=== PATIENT | female | born 1975 | race Caucasian/White ===

== ENCOUNTER 2016-12-03 01:30 | Emergency (ER) | payer OTHER ==
[~2016-12-03] VITALS: Ht 170.2 cm; Wt 49.9 kg
[2016-12-03 01:35] VITALS: TEMP 37.4; Ht 170.2 cm; Wt 49.9 kg
[2016-12-03] MEDS ORDERED: METHYLPREDNISOLONE 125 MG VIAL IV STA (01:47)
[2016-12-03] MEDS ORDERED: ALBUT/IPRATROP 3MG/0.5MG NEB 3 ML VIAL INH STA (01:47)
[2016-12-03] MEDS ORDERED: SODIUM CHLORIDE 0.9% 1000ML 1,000 ML IV STA (01:47)
[2016-12-03 02:19] LABS: BASO % 0.2 %; BASO ABS # 0.01 K/uL (0-0.2); COMPLETE YES; EOS % 0.7 %; HEMATOCRIT 40.6 % (37-47); IG% 0.2 %; LYMPH % 28.4 %; LYMPH ABS # 1.63 K/uL (1.2-3.4); MEAN CELL VOLUME 85.5 fL (80-100); MEAN CORPUSCULAR HEMOGLOBIN 31.4 pg (25-34); MEAN CORPUSCULAR HGB CONC 36.7 g/dl (32-36); MEAN PLATELET VOLUME 10.3 fL (7.4-10.4); MONO % 8.5 %; PLATELET COUNT 207 K/uL (130-400); RED BLOOD COUNT 4.75 M/uL (4.2-5.4); WHITE BLOOD COUNT 5.74 K/uL (4.8-10.8)
[2016-12-03 02:40] LABS: BLOOD UREA NITROGEN 8 mg/dl (7-18); BUN/CREATININE RATIO 9.3 (10-20); CALCIUM 8.5 mg/dl (8.5-10.1); CARBON DIOXIDE 23 mmol/L (21-32); CHLORIDE 108 mmol/L (98-107); CREATININE 0.87 mg/dl (0.60-1.20); GLUCOSE 94 mg/dl (70-99); POTASSIUM 3.9 mmol/L (3.5-5.1); SODIUM 141 mmol/L (136-145)
[2016-12-03 02:41] LABS: PREG INTERNAL NEGATIVE QC NEG CLEAR BACKGROUND; PREG INTERNAL POSITIVE QC POS CONTROL LINE
--- NOTE | 2016-12-03 03:02 | EMERGENCY ROOM VISIT NOTE ---
History First contact with patient: 01:43 Chief Complaint: FLU LIKE SX Stated Complaint: BAD COUGH,HURTS CHEST,FLU LIKE SYMPT LAST 2 DYS History of Present Illness The patient is a 40 year old female who presents to the Emergency Room with complaints of cough, congestion, mild, arthralgias, chest pain with coughing, fever and chills for the past few days. She was at urgent care was placed on a [employer]. Patient denies constant chest pain, abdominal pain, vomiting, diarrhea, neck stiffness, sore throat, earache. She is tolerate by mouth fluids and food. Her kids have been sick. Review of Systems See HPI for pertinent positives & negatives. A total of 10 systems reviewed and were otherwise negative. Past Medical/Surgical History Medical Problems: (1) Orthopedic surgery Family History Cancer Hypertension Kidney disease Kidney stones Social History Smoking Status: Never Smoker Alcohol Use: none Marital Status: Housing Status: lives with family Occupation Status: unemployed Current/Historical Medications Scheduled Prednisone (Prednisone), 50 MG PO DAILY Allergies Coded Allergies: No Known Allergies (Verified , 12/03/16) Physical Exam Vital Signs Date Time Temp Pulse Resp B/P Pulse Ox O2 Delivery O2 Flow Rate FiO2 12/03/16 01:35 37.4 99 19 104/65 97 Room Air Physical Exam VITALS: Vitals are noted on the nurse's note and reviewed by myself. Vital signs stable. GENERAL: Pleasant female, in no acute distress, nondiaphoretic, well-developed well-nourished. SKIN: The skin was without rashes, erythema, edema, or bruising. There is no tenting of the skin. Capillary reflex less than 2 seconds. HEAD: Normocephalic atraumatic. EARS: External auditory canals clear, tympanic membranes pearly culp without erythema or effusion bilaterally. EYES: Pupils equal round and reactive to light and accommodation. Conjunctivae without injection, sclerae without icterus. Extraocular movements intact. NOSE: Patent, turbinates without inflammation or discharge. No sinus tenderness. MOUTH: Mucous membranes moist. Pharynx without erythema or exudate. Uvula midline. Airway patent. Tongue does not deviate. NECK: Supple without nuchal rigidity. No lymphadenopathy. No thyromegaly. Cervical spine is nontender. No JVD. HEART: Regular rate and rhythm without murmurs gallops or rubs. LUNGS: Mild diffuse end expiratory wheezes, without rales or rhonchi. No dullness to percussion. No retractions or accessory muscle use. ABDOMEN: Positive bowel sounds x 4. Normal tympanic percussion. Soft, nontender, without masses or organomegaly. Banks sign negative. No guarding or rebound tenderness. MUSCULOSKELETAL: No muscle atrophy, erythema, or edema noted. NEURO: Patient was alert and oriented to person place and time. Normal sensation to light and sharp touch. No focal neurological deficits. Medical Decision & Procedures Laboratory Results 12/03/16 02:00 Red Blood Count 4.75, Mean Corpuscular Volume 85.5, Mean Corpuscular Hemoglobin 31.4, Mean Corpuscular Hemoglobin Concent 36.7, Mean Platelet Volume 10.3, Neutrophils (%) (Auto) 62.0, Lymphocytes (%) (Auto) 28.4, Monocytes (%) (Auto) 8.5, Eosinophils (%) (Auto) 0.7, Basophils (%) (Auto) 0.2, Neutrophils # (Auto) 3.56, Lymphocytes # (Auto) 1.63, Monocytes # (Auto) 0.49, Eosinophils # (Auto) 0.04, Basophils # (Auto) 0.01 12/03/16 02:00 Test 12/03/16 01:50 12/03/16 02:00 Influenza Type A Antigen Neg for Influ A (NEG) Influenza Type B Antigen Neg for Influ B (NEG) White Blood Count 5.74 K/uL (4.8-10.8) Red Blood Count 4.75 M/uL (4.2-5.4) Hemoglobin 14.9 g/dL (12.0-16.0) Hematocrit 40.6 % (37-47) Mean Corpuscular Volume 85.5 fL (80-100) Mean Corpuscular Hemoglobin 31.4 pg (25-34) Mean Corpuscular Hemoglobin Concent 36.7 g/dl (32-36) Platelet Count 207 K/uL (130-400) Mean Platelet Volume 10.3 fL (7.4-10.4) Neutrophils (%) (Auto) 62.0 % Lymphocytes (%) (Auto) 28.4 % Monocytes (%) (Auto) 8.5 % Eosinophils (%) (Auto) 0.7 % Basophils (%) (Auto) 0.2 % Neutrophils # (Auto) 3.56 K/uL (1.4-6.5) Lymphocytes # (Auto) 1.63 K/uL (1.2-3.4) Monocytes # (Auto) 0.49 K/uL (0.11-0.59) Eosinophils # (Auto) 0.04 K/uL (0-0.5) Basophils # (Auto) 0.01 K/uL (0-0.2) RDW Standard Deviation 38.2 fL (36.4-46.3) RDW Coefficient of Variation 12.2 % (11.5-14.5) Immature Granulocyte % (Auto) 0.2 % Immature Granulocyte # (Auto) 0.01 K/uL (0.00-0.02) Anion Gap 10.0 mmol/L (3-11) Est Creatinine Clear Calc Drug Dose 68.4 ml/min Estimated GFR () 97.3 Estimated GFR (Non- 83.9 BUN/Creatinine Ratio 9.3 (10-20) Calcium Level 8.5 mg/dl (8.5-10.1) Troponin I < 0.015 ng/ml (0-0.045) Human Chorionic Gonadotropin, Qual NEG (NEG) Medications Administered Medications (Trade) Dose Ordered Sig/Jerry Route Start Time Stop Time Status Last Admin Dose Admin Albuterol/ Ipratropium (Duoneb) 3 ml NOW STAT INH 12/03/16 01:47 12/03/16 01:48 DC 12/03/16 02:00 3 ML Methylprednisolone Sodium Succinate 125 mg 125 mg NOW STAT IV 12/03/16 01:47 12/03/16 01:48 DC 12/03/16 02:00 125 MG Sodium Chloride (Nss 1000ml) 1,000 ml @ 999 mls/hr Q1H1M STAT IV 12/03/16 01:47 12/03/16 02:47 DC 12/03/16 02:05 999 MLS/HR ED Course Prior records/ancillary studies reviewed. Triage Nursing notes reviewed. The patient's history was concerning for fever. Differential diagnosis: Etiologies such as viral syndrome, otitis, pharyngitis, pneumonia, influenza, meningitis, urinary tract infection, sepsis, bacteremia, as well as others were entertained. Physical examination: Patient was alert, interactive ER treatment provided: Nebulizer, Solu-Medrol On reassessment the patient felt better. Diagnostics interpreted by me: The labs revealed negative troponin. Negative flu Imaging studies: Chest x-ray with no acute consolidation, pneumothorax or free air per my interpretation This appears to be consistent with bronchitis. Patient was neurovascularly and neurologically intact. She is well-appearing. She is advised take medications as directed and to follow-up family care in a few days or here in the ER sooner for high fevers, lethargy, neck stiffness, worsening signs or symptoms or as needed. By the evaluation outlined above emergent etiologies such as otitis, pharyngitis, pneumonia, meningitis, urinary tract infection, sepsis, bacteremia , as well as others were deemed relatively unlikely. The pt informed about the findings as listed above. All questions were answered and pleased with the treatment. Return instructions were outlined and the patient was discharged in stable condition. Outpatient prescription management: prednisone Referral: The patient was referred back to their primary care physician for follow-up in 2 to 3 days for a recheck of the current condition. Case reviewed with my attending Medical Decision As above Impression Primary Impression: Acute bronchitis Departure Information Dispostion Home / Self-Care Condition GOOD Prescriptions Prednisone (Prednisone) 50 Mg Tab 50 MG PO DAILY for 4 Days, #4 TAB Prov: Shayy Diaz .ALVARO 12/03/16 Referrals No Doctor, Assigned (PCP) Patient Instructions My [facility] Additional Instructions Prednisone 50 m tablet daily for the next 4 days. Acetaminophen(Tylenol) may be used for fever or pain. Use 500mg every six hours as needed. Avoid using more than 2000mg in a 24 hour period. (AND/OR) Ibuprofen(Motrin, Advil) may be used for fever or pain. Use 400mg every six hours as needed. Take with food. Avoid using more than 1600mg in a 24 hour period. Do not use 1600mg per day for more than three consecutive days without physician direction. Prolonged inappropriate use can lead to stomach upset or ulcers. Afrin nasal spray: 2-3 sprays to each nostril twice daily as needed for congestion. Do not use for more than 3-4 days because it can lead to worsening rebound congestion. Pseudoephedrine(Sudaphed): 30-60mg every 6 hours as needed for nasal congestion. Do not take this with other stimulant products or supplements. Albuterol Inhaler: Take 2 puffs four times daily for seven days, then as needed. Rest and drink plenty of fluids. Controlling your fever with Tylenol and Ibuprofen as above will make you feel better. Wash your hands after nose blowing, sneezing, or coughing. Most germs are spread through contact, therefore improper hygiene may result in your close contacts and loved ones becoming ill just like you. Continue current medications. Return to the ER for severe headache, neck stiffness, chest pain, difficulty breathing, fevers, vomiting, worsening of your condition, or as needed. Follow up with your primary physician this week for a recheck of your current condition. Problem Qualifiers Primary Impression: Acute bronchitis Bronchitis organism: unspecified organism Qualified Codes: J20.9 - Acute bronchitis, unspecified
[2016-12-03] MEDS ORDERED: PRED50TA PO (03:03)
[2016-12-03] MEDS ORDERED: ALBUTEROL HFA 8 GM INHALER INH STA (03:08)
[2016-12-03 03:18] VITALS: BP 110/61; PULSE 73; O2SAT 98
[2016-12-03 04:13] LABS: INFLUENZA A PCR POS for Influ A (NEG); INFLUENZA B PCR Neg for Influ B (NEG)
--- NOTE | 2016-12-03 07:58 | DIAGNOSTIC IMAGING REPORT ---
CHEST 2 VIEWS ROUTINE HISTORY: cough/fever COMPARISON: Chest 09/21/2016. FINDINGS: The lungs are clear. Cardiac silhouette is normal in size. No pleural effusions. No pneumothorax. IMPRESSION: No acute process. Electronically signed by: Tanner Daily M.D. 12/03/2016 7:56 AM Dictated Date/Time: 12/03/2016 7:55 AM
[2017-01-01] MEDS ORDERED: MULT-506 PO (13:12)
[2017-01-01] MEDS ORDERED: DOCU100C31 PO (13:12)
[2017-01-01] MEDS ORDERED: CHOL1000 PO (13:12)
[2017-01-01] MEDS ORDERED: MELATAB2 PO (13:17)
[2017-01-21] MEDS ORDERED: LEVO50TA6 PO (12:55)
[2017-01-21] MEDS ORDERED: DOXY100C76 PO (12:55)
== END 2016-12-03 03:15 | disposition home or self-care (01) ==
LOC: C.EDB 01:31 → C.EDA 03:15
DX: J20.9 Acute bronchitis, unspecified (principal)

== ENCOUNTER → 2016-12-22 | Outpatient (CLI) | payer OTHER ==
[~2016-12-22] MED LIST: CHOL1000 PO; DOCU100C31 PO; DOXY100C76 PO; LEVO50TA6 PO; MELATAB2 PO; MULT-506 PO
[2016-12-22 09:41] LABS: HEMATOCRIT 38.2 % (37-47); MEAN CELL VOLUME 85.1 fL (80-100); MEAN CORPUSCULAR HEMOGLOBIN 30.3 pg (25-34); MEAN CORPUSCULAR HGB CONC 35.6 g/dl (32-36); MEAN PLATELET VOLUME 10.7 fL (7.4-10.4); PLATELET COUNT 260 K/uL (130-400); RED BLOOD COUNT 4.49 M/uL (4.2-5.4); WHITE BLOOD COUNT 5.03 K/uL (4.8-10.8)
[2016-12-22 10:02] LABS: ALB/GLOB RATIO 1.1 (0.9-2); ALKALINE PHOSPHATASE 61 U/L (45-117); ALT/SGPT 41 U/L (12-78); AST/SGOT 19 U/L (15-37); BLOOD UREA NITROGEN 14 mg/dl (7-18); BUN/CREATININE RATIO 15.2 (10-20); CALCIUM 8.6 mg/dl (8.5-10.1); CARBON DIOXIDE 26 mmol/L (21-32); CHLORIDE 110 mmol/L (98-107); CHOLESTEROL 152 mg/dl (0-200); CHOLESTEROL/HDL RATIO 2.9; CREATININE 0.95 mg/dl (0.60-1.20); GLUCOSE 83 mg/dl (70-99); HDL CHOLESTEROL 52 mg/dl; LDL CHOLESTEROL CALCULATED 84 mg/dl; POTASSIUM 4.1 mmol/L (3.5-5.1); SODIUM 142 mmol/L (136-145); TRIGLYCERIDES 79 mg/dl (0-150); VERY LOW DENSITY LIPOPROT CALC 16 mg/dl
[2016-12-22 10:07] LABS: AMYLASE 80 U/L (25-115)
[2016-12-22 10:19] LABS: BASO % 0.2 %; BASO ABS # 0.01 K/uL (0-0.2); COMPLETE YES; EOS % 2.2 %; IG% 0.2 %; LYMPH % 51.3 %; LYMPH ABS # 2.58 K/uL (1.2-3.4); MONO % 8.9 %; NEUT % 37.2 %
== END | disposition home or self-care (01) ==
LOC: C.LAB1850 07:10
PROVIDERS: ATTEND Nurse Practitioner Adult Health
DX: R10.13 Epigastric pain (principal); Z82.49 Family history of ischemic heart disease and other diseases of the circulatory system; Z13.220 Encounter for screening for lipoid disorders

== ENCOUNTER → 2016-12-23 | Outpatient (CLI) | payer OTHER ==
--- NOTE | 2016-12-23 09:15 | DIAGNOSTIC IMAGING REPORT ---
ABDOMEN COMPLETE (US) CLINICAL HISTORY: ABDOMINAL BLOATING AND PAIN; CONSTIPATION; COMPARISON STUDY: 04/17/2010 FINDINGS: The liver appears sonographically normal. The gallbladder appears sonographically normal. The pancreas appears sonographically normal. There is no ductal dilatation. The common bile duct measures 3 mm. The spleen appears normal as visualized. The spleen measures 10 cm. The right kidney measures 11 cm in length. The left kidney measures 11 cm in length. No renal masses are visualized. There is no hydronephrosis. There is no evidence of abdominal aortic dilatation. The IVC is unremarkable as visualized. IMPRESSION: Normal ultrasound of the upper abdomen. Electronically signed by: Wayne Piña M.D. 12/23/2016 9:13 AM Dictated Date/Time: 12/23/2016 9:11 AM
== END | disposition home or self-care (01) ==
LOC: C.ULTRBC 08:42
PROVIDERS: ATTEND Nurse Practitioner Adult Health
DX: K59.00 Constipation, unspecified (principal); R14.0 Abdominal distension (gaseous); R10.13 Epigastric pain

== ENCOUNTER → 2017-01-07 | Outpatient (CLI) | payer OTHER ==
[2017-01-07 15:06] LABS: URINE APPEARANCE TURBID (CLEAR); URINE BILIRUBIN NEG (NEG); URINE COLOR YELLOW; URINE NITRITE NEG (NEG); URINE SPECIFIC GRAVITY 1.018 (1.000-1.030); UROBILINOGEN NEG (NEG); ZZUR CULT IF INDIC CLEAN CATCH NO
[2017-01-07 15:22] LABS: MANUAL MICROSCOPIC REQUIRED? NO; REVIEW REQ? NO
== END | disposition home or self-care (01) ==
LOC: C.LAB1850 13:47
PROVIDERS: ATTEND Physician Assistant
DX: R39.9 Unspecified symptoms and signs involving the genitourinary system (principal)

== ENCOUNTER → 2017-01-15 | Outpatient (CLI) | payer OTHER ==
--- NOTE | 2017-01-15 11:26 | DIAGNOSTIC IMAGING REPORT ---
KUB CLINICAL HISTORY: Constipation. FINDINGS: 2 AP supine abdominal radiographs are compared to study dated 11/27/2012 and correlated with abdominal CT dated 11/19/2010. There is a nonobstructed abdominal bowel gas pattern noting moderate colonic fecal retention. Numerous phleboliths are observed in the pelvis. The bony structures appear intact. The lung bases are clear as imaged. IMPRESSION: Moderate constipation. Electronically signed by: Florencio Carson M.D. 01/15/2017 11:24 AM Dictated Date/Time: 01/15/2017 11:22 AM
== END | disposition home or self-care (01) ==
LOC: C.RAD1850 11:05
PROVIDERS: ATTEND Nurse Practitioner Adult Health
DX: K59.00 Constipation, unspecified (principal); R10.9 Unspecified abdominal pain

== ENCOUNTER → 2017-01-21 | Day surgery (SDC) | payer OTHER ==
[2017-01-01 13:12] VITALS: Ht 168.9 cm; Wt 57.7 kg
[~2017-01-21] VITALS: Ht 168.9 cm; Wt 57.7 kg
[~2017-01-21] MED LIST changes: +LIDOCAINE HCL 2% 2 ML VIAL (20MG/ML) ONE; +MIDAZOLAM HCL 1 MG/ML 2ML VIAL ONE; +ONDANSETRON INJ 2 MG/ML 2 ML VIAL ONE; +PROPOFOL IV EMULSION 10 MG/ML 20 ML VIAL IV ONE; +SODIUM CHLORIDE 0.9% 500ML 500 ML IV ONE
--- NOTE | 2017-01-21 13:40 | Endo History and Physical ---
History & Physical Date of Service: Jan 21, 2017. Chief Complaint: change in bowel habits Referring Physician: Liane MILLER History of Present Illness 41 yo CF who presents for colonoscopy secondary to change in bowel habits. Past Surgical History Hx Cardiac Surgery: No Hx Internal Defibrillator: No Hx Pacemaker: No Hx Abdominal Surgery: No Hx of Implantable Prosthesis: No Hx Post-Op Nausea and Vomiting: No Hx Cancer Surgery: No Hx Thoracic Surgery: No Hx Orthopedic: Yes (LT KNEE SCOPE) Hx Urinary Tract Surgery: No Family History None Social History Smoking Status: Never Smoker Hx Substance Use: No Hx Alcohol Use: No Allergies Coded Allergies: No Known Allergies (Verified , 01/01/17) Current Medications Reported Home Medications Medications Dose Route/Sig Max Daily Dose Days Date Category Monodox (Doxycycline Monohydrate) 100 Mg Cap 100 Mg PO BID 01/21/17 Reported Levothyroxine Sodium 50 Mcg Tab 1 Tab PO DAILY 30 01/21/17 Reported Melatonin Maximum Strengt (Melatonin) 5 Mg Tab 1 Tab PO HS 01/01/17 Reported Docusate Sodium 100 Mg Cap 1 Cap PO QAM 01/01/17 Reported Vitamin D3 (Cholecalciferol) 1,000 Unit Tab 1 Tab PO QAM 01/01/17 Reported Multivitamin (Multivitamins) Tab 1 Tab PO QAM 01/01/17 Reported Vital Signs Weight (Kilograms): 57.73 Height (Feet): 5 Height (Inches): 6.5 Date Time Temp Pulse Resp B/P Pulse Ox O2 Delivery O2 Flow Rate FiO2 01/21/17 13:00 36.8 90 18 124/56 99 Room Air Physical Exam General Appearance: WD/WN, no apparent distress Respiratory/Chest: Auscultation: breath sounds normal Cardiovascular: Heart Auscultation: RRR Abdomen: Bowel Sounds: normal Inspection & Palpation: soft, non-distended, no tenderness, guarding & rebound Assessment and Plan Assessment: 41 yo CF who presents for colonoscopy secondary to change in bowel habits. Plan: Proceed with colonoscopy.
--- NOTE | 2017-01-21 14:05 | Discharge Instructions ---
Endoscopy Patient Instructions Date / Procedure(s) Performed Jan 21, 2017. Colonoscopy Allergy Information Coded Allergies: No Known Allergies (Verified , 01/01/17) Discharge Date / Findings Jan 21, 2017. Internal hemorrhoids Medication Instructions OK to resume all medications today as prescribed. Reported Home Medications Medications Dose Route/Sig Max Daily Dose Days Date Category Monodox (Doxycycline Monohydrate) 100 Mg Cap 100 Mg PO BID 01/21/17 Reported Levothyroxine Sodium 50 Mcg Tab 1 Tab PO DAILY 30 01/21/17 Reported Melatonin Maximum Strengt (Melatonin) 5 Mg Tab 1 Tab PO HS 01/01/17 Reported Docusate Sodium 100 Mg Cap 1 Cap PO QAM 01/01/17 Reported Vitamin D3 (Cholecalciferol) 1,000 Unit Tab 1 Tab PO QAM 01/01/17 Reported Multivitamin (Multivitamins) Tab 1 Tab PO QAM 01/01/17 Reported Provider Instructions Activity Restrictions - No exercising or heavy lifting for 24 hours. - Do not drink alcohol the day of the procedure. - Do not drive a car or operate machinery until the day after the procedure. - Do not make any important decisions or sign important papers in 24 hours after the procedure. Following Day: - Return to full activity which may include returning to work/school. Diet Start your diet with liquids and light foods (jello, soup, juice, toast). Then eat your usual diet if not nauseated. Treatment For Common After Affects For mild abdominal pain, bloating, or excessive gas: - Rest - Eat lightly - Lie on right side Follow-Up Information Follow-up with Liane MILLER as scheduled Anesthesia Information What You Should Know You have had a procedure that required some medicine to reduce anxiety and discomfort. This treatment is called moderate sedation. After receiving the treatment, you may be sleepy, but you will be able to breathe on your own. The effects of the treatment may last for several hours. Follow these instructions along with Activity/Diet recommendations noted above: * Do NOT do anything where dizziness or clumsiness would be dangerous. * Rest quietly at home today, then you can be up and about tomorrow. * Have a responsible person stay with you the rest of today. * You may have had an I.V. today. If so, you may take the dressing off later today. Recommendations Call your doctor if: * Trouble breathing * Continuous vomiting for more than 24 hours * Temperature above 101 degrees * Severe abdominal pain or bloating * Pain not relieved by pain medicine ordered * There is increased drainage or redness from any incision * A large amount of rectal bleeding greater than 2-3 tablespoons. (If you had a polyp/s removed or have hemorrhoids, a small amount of blood - from the rectum is to be expected.) * You have any unanswered questions or concerns. IN THE EVENT OF A SERIOUS EMERGENCY, GO TO THE NEAREST EMERGENCY ROOM Your discharge instructions were prepared by provider Jem Najera. Patient Instructions Signature Page Deanne Pinedo Patient (or Guardian) Signature/Date: I have read and understand the instructions given to me by my caregivers. Caregiver/RN/Doctor Signature/Date: The above-named patient and/or guardian has received patient instructions on this date. + Original Patient Signature Page (only) stays with chart. Please make copy for patient.
--- NOTE | 2017-01-21 14:10 | GI REPORT ---
Procedure Date: 01/21/2017 1:33 PM Procedure: Colonoscopy Indications: Change in bowel habits Medicines: Monitored Anesthesia Care Complications: No immediate complications. Estimated Blood Loss: Estimated blood loss: none. Procedure: Pre-Anesthesia Assessment: - Prior to the procedure, a History and Physical was performed, and patient medications and allergies were reviewed. The patient's tolerance of previous anesthesia was also reviewed. The risks and benefits of the procedure and the sedation options and risks were discussed with the patient. All questions were answered, and informed consent was obtained. Prior Anticoagulants: The patient has taken no previous anticoagulant or antiplatelet agents. ASA Grade Assessment: II - A patient with mild systemic disease. After reviewing the risks and benefits, the patient was deemed in satisfactory condition to undergo the procedure. After I obtained informed consent, the scope was passed under direct vision. Throughout the procedure, the patient's blood pressure, pulse, and oxygen saturations were monitored continuously. The scope was introduced through the anus and advanced to the terminal ileum. The colonoscopy was performed without difficulty. The patient tolerated the procedure well. The quality of the bowel preparation was good. The terminal ileum, ileocecal valve, appendiceal orifice, and rectum were photographed. Findings: Non-bleeding internal hemorrhoids were found during retroflexion. The hemorrhoids were small. The exam was otherwise without abnormality. Impression: - Non-bleeding internal hemorrhoids. - The examination was otherwise normal. - No specimens collected. Recommendation: - Resume previous diet. - Continue present medications. - Repeat colonoscopy in 10 years for surveillance. - Return to GI office as previously scheduled. Jem Najera DO 01/21/2017 2:09:31 PM This report has been signed electronically. Note Initiated On: 01/21/2017 1:33 PM I attest to the content of the Intraoperative Record and orders documented therein, exceptions below
--- NOTE | 2017-01-21 14:30 | Anesthesiology Progress Note ---
Anesthesia Post Op Note Date & Time Jan 21, 2017 at 14:29 Vital Signs Pain Intensity: 0 Vital Signs Past 12 Hours Date Time Temp Pulse Resp B/P Pulse Ox O2 Delivery O2 Flow Rate FiO2 01/21/17 14:16 68 18 104/65 100 Room Air 01/21/17 14:01 85 18 107/70 100 Room Air 01/21/17 13:00 36.8 90 18 124/56 99 Room Air Notes Mental Status: alert / awake / arousable, participated in evaluation Pt Amnestic to Procedure: Yes Nausea / Vomiting: adequately controlled Pain: adequately controlled Airway Patency, RR, SpO2: stable & adequate BP & HR: stable & adequate Hydration State: stable & adequate Anesthetic Complications: no major complications apparent
[2017-01-21 14:36] VITALS: BP 100/66; PULSE 62; O2SAT 100
== END | disposition home or self-care (01) ==
LOC: C.GI 12:37
PROVIDERS: ATTEND Internal Medicine
DX: R19.4 Change in bowel habit (principal); K64.8 Other hemorrhoids

== ENCOUNTER → 2017-02-16 | Outpatient (CLI) | payer OTHER ==
[~2017-02-16] MED LIST changes: -LIDOCAINE HCL 2% 2 ML VIAL (20MG/ML) ONE; -MIDAZOLAM HCL 1 MG/ML 2ML VIAL ONE; -ONDANSETRON INJ 2 MG/ML 2 ML VIAL ONE; -PROPOFOL IV EMULSION 10 MG/ML 20 ML VIAL IV ONE; -SODIUM CHLORIDE 0.9% 500ML 500 ML IV ONE
--- NOTE | 2017-02-16 13:03 | MAMMOGRAPHY REPORT ---
UNILATERAL LEFT DIGITAL DIAGNOSTIC MAMMOGRAM TOMOSYNTHESIS WITH CAD AND TARGETED BILATERAL ULTRASOUN CLINICAL HISTORY: 41 year-old woman presents for follow-up of an asymmetry in the superior left urbano st. She reports the lump in the right upper outer quadrant remains palpable but does not seem incre ased in size since the previous exam performed in July of 2016. TECHNIQUE: Left breast CC, MLO and XCCL 2-D digital and tomosynthesis images were obtained. Curren t study was also evaluated with a Computer Aided Detection (CAD) system. COMPARISON: Comparison is made to exams dated: 08/19/2016 ultrasound and 08/19/2016 mammogram - [facility]. BREAST COMPOSITION: The tissue of the left breast is heterogeneously dense, which may obscure small masses. FINDINGS: There is an 11 x 6 mm ovoid asymmetry in the superior posterior left breast, projecting ov er the pectoralis muscle on the MLO view, that does not appear significantly changed comparing to th e prior exam at which time it measured 9.1 x 6.3 mm. No other new suspicious mass, architectural di stortion or suspicious calcifications are seen in the left breast. Further evaluation with ultrasou nd was performed. The patient reports the mass in the right breast feels similar in size compared to the prior exam. Repeat targeted ultrasound was performed in the area of mass within the right 10:00 breast. Again s een is a complicated cyst with thin internal nonvascular septations measuring 16 x 9 x 17 mm. This has not significantly changed in size or appearance compared to the prior ultrasound. Throughout th e left superior breast, no suspicious solid or cystic mass is seen. Several lobulated morphological ly normal lymph nodes are seen near the left axillary tail and within the left axilla. One of these lymph nodes measures 10.4 x 4.0 millimeters and may possibly correlate with the mammographic asymme try. IMPRESSION: ACR-BI-RADS CATEGORY 3: PROBABLY BENIGN, TARGETED ULTRASOUND ACR-BI-RADS CATEGORY 3: SC OBABLY BENIGN 1. A left breast asymmetry in the superior posterior aspect of the breast on the MLO view has not s ignificantly changed comparing to the 08/19/2016 exam. This could correspond to a morphologically n ormal lymph node in the left axillary tail identified on ultrasound. However, given that long-term stability is not demonstrated mammographically, another short interval follow-up diagnostic left matthew mogram and possible repeat ultrasound is recommended to ensure stability in 6 months. Annual right mammography will be due at that time. 2. The palpable lump in the 10:00 right breast representing a complicated cyst has not significantl y changed in size or appearance compared to the prior ultrasound. These results and recommendations were discussed with the patient at the time of the exam. Approximately 10% of breast cancers are not detected with mammography. A negative mammographic repor t should not delay biopsy if a clinically suggestive mass is present. Julieta Daniel M.D. ay/:02/16/2017 12:51:12 Industrial Machine Assembler: Yanni Tapia, [facility] letter sent: Follow Up Recommended 3 BI-RADS Code: ACR-BI-RADS Category 3: Probably Benign Ultrasound BI-RADS: ACR-BI-RADS Category 3: P robably Benign
== END | disposition home or self-care (01) ==
LOC: C.MAMM 09:36
PROVIDERS: ATTEND Physician Assistant
DX: N64.89 Other specified disorders of breast (principal); N63 Unspecified lump in breast

== ENCOUNTER → 2017-02-24 | Outpatient (CLI) | payer OTHER ==
[2017-02-24 12:47] LABS: LYME DISEASE AB IGG NEG (NEG); LYME DISEASE AB IGM NEG (NEG)
== END | disposition home or self-care (01) ==
LOC: C.LAB1850 09:00
PROVIDERS: ATTEND Nurse Practitioner Adult Health
DX: E03.9 Hypothyroidism, unspecified (principal); W57.XXXA Bitten or stung by nonvenomous insect and other nonvenomous arthropods, initial encounter

== ENCOUNTER → 2017-05-27 | Outpatient (CLI) | payer OTHER | END | disposition home or self-care (01) | LOC: C.LAB1850 11:55 | PROVIDERS: ATTEND Nurse Practitioner Adult Health | DX: E03.9 Hypothyroidism, unspecified (principal) ==

== ENCOUNTER → 2017-06-24 | Outpatient (CLI) | payer OTHER ==
[2017-06-24 19:37] LABS: LYME DISEASE AB IGM NEG (NEG)
[2017-06-24 19:40] LABS: LYME DISEASE AB IGG NEG (NEG)
== END | disposition home or self-care (01) ==
LOC: C.LABBC 12:22
PROVIDERS: ATTEND Psychiatry & Neurology Neurology
DX: M54.12 Radiculopathy, cervical region (principal)

== ENCOUNTER → 2017-07-06 | Outpatient (CLI) | payer OTHER ==
--- NOTE | 2017-07-06 10:37 | DIAGNOSTIC IMAGING REPORT ---
(BARIUM SWALLOW) ESOPHAGUS CLINICAL HISTORY: R09.89 Choking [id number] Sensation of lump in [id number] Dy COMPARISON STUDY: None FLUOROSCOPY TIME: 1.1 minutes. NUMBER OF FLUOROSCOPIC IMAGES: 27 FINDINGS: The patient swallowed effervescent granules and barium without difficulty. No esophageal masses or ulcerations were visualized. There is no evidence of esophageal stricture. Mild reflux was noted. IMPRESSION: Gastroesophageal reflux. Otherwise normal study. Electronically signed by: Wayne Piña M.D. 07/06/2017 10:35 AM Dictated Date/Time: 07/06/2017 10:34 AM
== END | disposition home or self-care (01) ==
LOC: C.RAD 09:41
PROVIDERS: ATTEND Nurse Practitioner Adult Health
DX: K21.9 Gastro-esophageal reflux disease without esophagitis (principal); R13.10 Dysphagia, unspecified; R09.89 Other specified symptoms and signs involving the circulatory and respiratory systems

== ENCOUNTER → 2017-08-18 | Outpatient (CLI) | payer OTHER | END | disposition home or self-care (01) | LOC: C.LAB1850 09:54 | PROVIDERS: ATTEND Nurse Practitioner Adult Health | DX: E03.9 Hypothyroidism, unspecified (principal) ==

== ENCOUNTER → 2017-08-26 | Outpatient (CLI) | payer OTHER ==
--- NOTE | 2017-08-26 13:43 | MAMMOGRAPHY REPORT ---
BILATERAL DIGITAL DIAGNOSTIC MAMMOGRAM TOMOSYNTHESIS WITH CAD AND TARGETED BILATERAL ULTRASOUND: 07/30 CLINICAL HISTORY: 41-year-old woman presents for second close follow-up of an asymmetry in the superi or posterior left breast, projecting over the pectoralis muscle on the MLO view. Also due for annual bilateral mammography. TECHNIQUE: Bilateral breast tomosynthesis in addition to standard 2D mammography was performed. Curre nt study was also evaluated with a Computer Aided Detection (CAD) system. COMPARISON: Comparison is made to exams dated: 02/16/2017 ultrasound, 02/16/2017 mammogram, 08/19/2016 ultrasound, and 08/19/2016 mammogram - [facility]. BREAST COMPOSITION: The tissue of both breasts is heterogeneously dense, which may obscure small mas ses. FINDINGS: Again seen is a nodular asymmetry in the superior posterior left breast, projecting over th e pectoralis muscle on the MLO view. The appearance is visually similar dating back to the 6 mammogram, and the size measurements are also the same, measuring 6 x 9 mm. No associated calcific ation or architectural distortion. On the corresponding tomosynthesis images, this area has the appe arance of normal fibroglandular tissue with intra-coursing fat. No other new suspicious mass, davi ectural distortion, asymmetry or calcifications are seen in the left breast. A lobulated 7 x 11 mm reniform shaped mass is seen in the superior posterior right breast, projecting over the pectoralis muscle on the MLO view. This is similar comparing to the 08/19/2016 mammogram a nd could represent a lymph node. No other obvious new mass, area of distortion, asymmetry or suspici ous calcifications are seen in the right breast. Further evaluation with ultrasound was again performed in the superior aspect of both breasts. In th e left axilla, a morphologically normal lymph node is identified. Throughout the remainder of the le ft breast, no discrete solid or cystic mass is seen. A previously observed multiloculated cyst with internal septations in the 10:00 right breast 3 cm from the nipple has decreased in size (it should b e noted that the ultrasound images are mislabeled left breast but they were actually performed in the right breast 10:00 axis). It currently appears more unilocular and measures 1.1 x 0.5 x 0.6 cm. Mo rphologically normal lymph nodes are seen in the right axilla and right axillary tail. In particular a lymph node in the inferior right axilla is identified measuring 1.1 x 0.3 cm, thought to correlate with the reniform circumscribed mass seen mammographically. IMPRESSION: ACR-BI-RADS CATEGORY 3: PROBABLY BENIGN, TARGETED ULTRASOUND ACR-BI-RADS CATEGORY 3: PRO BABLY BENIGN Stable mammographic appearance of the breasts, including a stable 6 x 9 mm nodular asymmetry in the s uperior posterior left breast on the MLO view. This most likely represents normal fibroglandular tis jonny given that it has not changed in size for 1 year mammographically and is not identified on ultras ound. Another 12 month follow-up bilateral diagnostic tomosynthesis mammogram and possible ultrasoun d is recommended in 12 months, to ensure at least 2 years of stability to confirm benignity. These results and recommendations were discussed with the patient at the time of the exam. Approximately 10% of breast cancers are not detected with mammography. A negative mammographic report should not delay biopsy if a clinically suggestive mass is present. Julieta Daniel M.D. ay/:08/26/2017 10:59:04 Experience Design Director: Patricia LUX(Marla)(M), [facility] letter sent: Follow Up Recommended 3 BI-RADS Code: ACR-BI-RADS Category 3: Probably Benign Ultrasound BI-RADS: ACR-BI-RADS Category 3: Pr obably Benign
== END | disposition home or self-care (01) ==
LOC: C.MAMM 09:24
PROVIDERS: ATTEND Physician Assistant
DX: N64.9 Disorder of breast, unspecified (principal)